=== PATIENT | male | born 1975 | race Two or more races ===

== ENCOUNTER 2025-09-13 10:22 | Emergency (ER) | payer OTHER ==
[~2025-09-13] VITALS: Ht 177.8 cm; Wt 70.3 kg
[2025-09-13] MEDS ORDERED: KETOROLAC TROMETHAMINE 30 MG VIAL IV ONE (11:15)
[2025-09-13] MEDS ORDERED: KETOROLAC TROMETHAMINE 30 MG VIAL ONE (11:24)
[2025-09-13 12:16] LABS: BASO % 0.4 % (0.1-1.2); EOS # 0.10 (0.04-0.54); EOS % 0.6 % (0.7-7.0); LYMPH # 1.34 (1.18-3.74); LYMPH % 8.6 % (19.3-53.1); MEAN PLATELET VOLUME 9.60 fl (9.4-12.4); MONO # 0.99 (0.24-0.82); MONO % 6.4 % (4.7-12.5); NEUT # 13.03 (1.56-6.13); NEUT % 83.7 % (34.0-71.1); RED CELL DISTRIBUTION WIDTH 13.5 % (11.6-14.4)
[2025-09-13 13:14] LABS: ALT/SGPT 25.0 U/L (12-78); AST/SGOT 24.0 U/L (15-37); BILIRUBIN TOTAL 0.61 mg/dL (0.3-1.2); BUN CREA RATIO 16.0 (7.0-25.0); CREATININE SERUM 1.32 mg/dL (0.70-1.30); GFR 57.89; GLOBULINA 3.3 G/DL (2.4-3.5); GLUCOSE FASTING 147.0 mg/dL (65-100); OSMOLALITY SERUM 287.0 MOSM/KG (275-295)
[2025-09-13 18:18] LABS: URINE APPEARANCE Clear; URINE BILIRRUBIN Negative (NEGATIVE); URINE BLOOD Negative; URINE COLOR Dark Yellow; URINE GLUCOSE Negative (NEGATIVE); URINE KETONE 15 (NEGATIVE); URINE LEUKOCYTE Negative; URINE NITRATE Negative; URINE PROTEIN 30 (NEGATIVE); URINE UROBILINOGEN 1.0 E.U./dl
[2025-09-13 18:23] LABS: URINE BACTERIA 26.3 uL (0.0-1933); URINE EPITHELIAL CELLS 8.1 uL (0.0-38.8); URINE RBC 5.8 uL (0.0-20.8); URINE WBC 18.5 uL (0.0-23.2)
[2025-09-13] MEDS ORDERED: TAMSULOSIN HCL 0.4 MG CAP PO ONE ×2 (18:30→18:36)
[2025-09-13] MEDS ORDERED: TRAMADOL HCL 50 MG TABLET PO ONE (18:30)
[2025-09-13 18:35] LABS: TYPE CELLS SQUAMOUS; URINE CAST 0.87 uL (0.0-1.40)
[2025-09-13] MEDS ORDERED: ONDANSETRON HCL 2 MG/ML VIAL IV ONE (19:15)
[2025-09-13] MEDS ORDERED: SALINE MIST45 ML (19:27)
[2025-09-13] MEDS ORDERED: TRAMADOL HCL50 MG PO (19:36)
[2025-09-13] MEDS ORDERED: TAMS0.4C PO (19:36)
[2025-09-13] MEDS ORDERED: ONDANSETRON HCL 2 MG/ML VIAL ONE (20:10)
== END 2025-09-13 20:36 | disposition home or self-care (01) ==
LOC: ER 10:22
PROVIDERS: Preventive Medicine Public Health & General Preventive Medicine
DX: N20.1 Calculus of ureter (principal); M54.50 Low back pain, unspecified; R10.21 Pelvic and perineal pain right side